=== PATIENT | male | born 1940 | race Caucasian/White ===

== ENCOUNTER 2022-04-15 08:56 | Outpatient (CLI) | payer MEDICARE, OTHER, SELFPAY ==
--- NOTE | 2022-04-15 11:15 | NEURO_ITS ---
Impression: # Complains of numbness. History of back surgery for spinal stenosis. # Normal nerve conduction study including F-waves, motor and sensory nerves. # Needle/EMG exam not requested. # Clinical correlation recommended. Nerve Conduction Studies Anti Sensory Summary Table Stim Site NR Peak (ms) P-T Amp (?V) Site1 Site2 Delta-P (ms) Dist (cm) Tawanda (m/s) Left Sup Fibular Anti Sensory (Ant Lat Mall) 14 cm 3.3 11.5 14 cm Ant Lat Mall 3.3 16.0 48 Left Sural Anti Sensory (Lat Mall) Calf 3.6 9.2 Calf Lat Mall 3.6 16.0 44 Motor Summary Table Stim Site NR Onset (ms) O-P Amp (mV) Site1 Site2 Delta-0 (ms) Dist (cm) Tawanda (m/s) Left Peroneal Motor (Vastus Med) Ankle 4.1 2.2 Popit Ankle 8.5 37.0 44 Popit 12.6 1.9 Left Tibial Motor (Abd Mora Brev) Ankle 4.8 2.0 Knee Ankle 9.5 41.0 43 Knee 14.3 1.4 F Wave Studies NR F-Lat (ms) L-R F-Lat (ms) Left Peroneal (Mrkrs) (EDB) 55.28 Left Tibial (Mrkrs) (Abd Hallucis) 56.06 MTDD
== END 2022-04-15 08:57 | disposition home or self-care (01) ==
LOC: ANHNEURO 08:58
PROVIDERS: PCP Internal Medicine; Visit Provider Internal Medicine
DX: M54.16 Radiculopathy, lumbar region (principal)
CPT/HCPCS: 95908

== ENCOUNTER 2022-06-25 09:07 | Outpatient (CLI) | payer MEDICARE, OTHER, SELFPAY ==
--- NOTE | 2022-06-25 11:00 | NEURO_ITS ---
Impression: # Complains of numbness of left hand. # Severe left Carpal Tunnel Syndrome. # Left ulnar neuropathy across the elbow. # Needle/EMG exam not requested. Motor Nerve Conduction Upper Extremities Median Nerve Conduction Velocity (m/sec) Terminal Latency (msec) Response Voltage(mV) Elbow-Wrist Wrist Elbow Wrist Right Left 60 6.4 1 1 Ulnar Nerve Conduction Velocity (m/sec) Terminal Latency (msec) Response Voltage(mV) Above Elbow Below Elbow Wrist Above Elbow Below Elbow Wrist Right Left 51 57 2.6 7 6 7 F-Wave Latency Median (ms) Ulnar (ms) Right Left 26.9 24.9 Sensory Nerve Conduction Upper Extremities Median Nerve Stimulation Terminal Latency (msec) Wrist/Digit Response Voltage (uV) Wrist Right Left 5.5/5.9 24/25 Ulnar Nerve Stimulation Terminal Latency (msec) Wrist/Digit Response Voltage (uV) Wrist Right Left 2.8 19 Radial Nerve Terminal Latency (msec) Response Voltage(mV) Right Left 2.3 11 MTDD
== END 2022-06-25 09:08 | disposition home or self-care (01) ==
LOC: ANHNEURO 09:09
PROVIDERS: PCP Internal Medicine; Visit Provider Internal Medicine
DX: G56.02 Carpal tunnel syndrome, left upper limb (principal); G56.22 Lesion of ulnar nerve, left upper limb; M79.641 Pain in right hand
CPT/HCPCS: 95909

== ENCOUNTER 2022-09-24 00:57 | Day surgery (SDC) | payer MEDICARE, OTHER, SELFPAY ==
--- NOTE | 2022-09-14 14:46 | PC.NURSE ---
Report to the Outpatient Waiting Room, entrance under the green pavilion located off [facility], at time __1100 on date __09/24/22 . Planned Procedure Time: __1300 . Time changes happen often and if your time is changed the preop area will call you the afternoon before. - You and your visitor will be asked to self-screen and do not enter if you have any COVID symptoms. - Only one visitor is requested with a max of two and NO children visitors are allowed at this time. - The patient visitor may be requested to leave or wait in car when not with patient due to distancing restrictions. - A mask is optional within the hospital at this time. Patients may have clear liquids (water, carbonated beverages, clear teas, apple juice) until 3 hours prior to surgery with a maximum of 20 ounces. - No food from midnight until time of surgery - Infants may have breast milk until 4 hours before surgery, formula 6 hours prior to surgery. - Children will be allowed to drink immediately following surgery. If applicable, please bring a bottle or sippy cup to assist with drinking. Juice, water, soda, and popsicles are readily available. For infants on formula, please bring formula the day of surgery. Pacifiers are allowed. Take the following medications with a SIP of water the morning of surgery: NONE DO NOT STOP ANY OF YOUR OTHER PRESCRIPTION MEDICATIONS PRIOR TO SURGERY ?EXCEPT THE FOLLOWING Medications to discontinue per physician ____ALL VITAMINS/SUPPLEMENTS 3 DAYS PRE OP. LAST DOSE 09/20/22 Please no make-up, nail vietnamese, hairspray, perfume, deodorant, or body powder the day of surgery. No jewelry (including any body piercings) or valuables the day of surgery, leave them at home. Please take a shower or bath the night before, or the morning of, surgery with an antibacterial soap. Wear comfortable, loose fitting clothing. Children are encouraged to wear pajamas. - Jewelry must be removed prior to entering the operating room. Rings and piercings that are not removed may be cut off. - The hospital will not accept responsibility for valuables. - Please leave all valuables, including medications, at home the day of surgery. If you are going home after surgery, a licensed racecar driver must drive you home. - NO public transportation without another adult if you receive anesthesia. - We recommend that an adult stay with you for 24 hours following discharge. - We also recommend that you do not drive, make important decision, drink alcoholic beverages, or take any drugs that were not prescribed by your health care provider for at least 24 hours after your discharge time. For Pediatric surgeries, we recommend two adults accompany the child home. Follow any additional instructions given to you from your surgeon. If you or anyone in your household have experienced Covid symptoms in the past week, please notify your surgeon or the nurse liaison at the phone number below for possible testing. Telephone instructions given to __PATIENT and asked if any additional questions and then verbalized understanding. Patient advised to call surgeon office or pre surgery nurse liaison [phone] if any additional questions.
[2022-09-14 14:53] VITALS: BMI 24.0
--- NOTE | 2022-09-24 07:17 | WPDHPUPDATE1 ---
History and Physical Update Update Date/Time: 09/24/22 07:17 History and Physical has been reviewed, including an updated exam of the patient. There are NO changes in the patient's condition. Risks, benefits, and alternatives have been discussed and questions answered. Patient agrees to proceed with procedure.
[2022-09-24] MEDS: LACTATED RINGERS 1,000 ML 30 ML IV CONT (11:40)
[2022-09-24 11:47] VITALS: BP 111/61; PULSE 73; RESP 16; TEMP 36.2; O2SAT 97
--- NOTE | 2022-09-24 12:36 | WPDANESEPPF ---
Anes - Initial Pre Proc Eval Procedure: Operation Date: 09/24/22 13:00 Proposed Procedures p Left Open Carpal Tunnel, Left Ulnar Neuroplasty at Elbow - Jerrod Betancur MD Date/Time: 09/24/22 12:36 Surgeon: Jerrod Betancur MD Pre Op Diagnosis: Left Carpal & Left Cubital Tunnel Synd Patient Data Age: 81 Gender: M Height: 1.63 m Weight: 66.4 kg Last Vital Signs Temp 97.2 F L 09/24/22 11:47 Pulse 73 09/24/22 11:47 Resp 16 09/24/22 11:47 BP 111/61 09/24/22 11:47 Pulse Ox 97 09/24/22 11:47 O2 Del Method Room Air 09/24/22 11:47 Allergies Allergy/AdvReac Type Severity Reaction Status Date / Time No Known Allergies Allergy Verified 09/24/22 11:26 Home Medications Medication Instructions Recorded Confirmed Type esomeprazole magnesium 40 mg 40 mg PO DAILY 06/04/22 09/14/22 History capsule,delayed release magnesium 500 mg tablet 15 mg PO DAILY 09/14/22 09/14/22 History multivitamin 1 tablet PO DAILY 09/14/22 09/14/22 History Patient hx anesthesia problems: none Family hx anesthesia problems: none Results Review: All pre-operative results and documents have been reviewed as part of the pre-operative evaluation. [facility] Social History Social History (Updated 06/04/22 @ 10:21 by Delmi Cardoso [facility]) Smoking status: Never smoker Alcohol intake: never Substance use: never Lack of Transportation: No Lack of Food: Never True Current Housing: I Have Housing Concerned About Future Housing: No Difficulty Paying Gas/Electric Bills: No Difficulty Paying for Meds: No Currently Unemployed: No Education: High School Diploma/GED Difficulty w/ Childcare or Family Care: No Living arrangements: with friend(s) Spiritual care concerns: No Anes - Eval Final PreProcedure Day of Procedure 09/24/22 12:36 Patient weight: normal Heart: regular rate and rhythm Lungs: clear to auscultation Airway: Mallampati scale class II Neurological: alert and oriented Last oral intake: >/= 8 hours ASA classification: III Emergent: no Anesthetic plan: proceed Anesthesia type and monitoring: general GIVS and standard monitoring Results Review: All pre-operative results and documents have been reviewed as part of the pre-operative evaluation. Informed Consent: The patient's anesthetic plan and its attendant risks and benefits were discussed with the patient/family/POA. Questions were solicited and answers provided to the satisfaction of the patient/family/POA.
[2022-09-24] MEDS: LIDO 1%/EPINEPHRINE 1:100,000 50 ML VIAL 25 ML INFILTRATE (13:38)
[2022-09-24] MEDS: BACITRACIN OINTMENT 15 GM TUBE 1 APPLIC TOPICAL (13:38)
[2022-09-24 13:56] VITALS: BP 92/43; PULSE 71; RESP 14; O2SAT 97
[2022-09-24 14:25] VITALS: BP 111/54; PULSE 62; RESP 16
[2022-09-24 14:53] VITALS: BP 111/54; PULSE 62; RESP 16
--- NOTE | 2022-09-24 17:25 | P.OP_ITS ---
Procedure Note - Detailed Date of Procedure 09/24/22 Pre-op Diagnosis Left Carpal & Left Cubital Tunnel Synd Post-op Diagnosis Same Procedure Performed Left carpal tunnel release and left ulnar neuroplasty at the elbow Surgeon Jerrod Betancur MD Anesthesia MAC Description of Procedure The left carpal tunnel in the left cubital tunnel were marked on the patient in the holding area with his consent. He was taken to the operating room where he was placed supine on the operating table. He was given IV sedation. The extremity was prepped and draped in usual fashion. The time-out was held and confirmed. The surgical sites were marked for incisions and locally infiltrated with 1% lidocaine with epinephrine. The extremity was exsanguinated with an Pillo wrap and the tourniquet inflated to 250 mmHg. The carpal tunnel surgery was done 1st with the incision as marked. Blunt dissection to the subcutaneous tissue revealed the palmar aponeurosis. This and the transverse retinaculum were incised with a 15. Blade opening the canal. Under 3 point retraction the ligament was divided distally and proximally to completely release it. There was no unusual anatomy noted. The skin was closed with interrupted 4-0 nylon suture. Attention was turned to the elbow which was supported on folded towels flexed a nd the arm externally rotated. The incision was made as marked and dissection was carried through the very elastic subcutaneous tissue. The nerve was easily identified posterior to the medial epicondyle. It was easily removed least proximally there were no constraints in that area particularly. Distally it was followed beneath Lazar's ligament and into the flexor muscle fascia. This nerve did not subluxate. Bleeding points were electrocoagulated. The skin was closed with interrupted 3-0 Monocryl at several sites and then the running intradermal skin closure with 3-0 Monocryl. The usual bandages were applied to each the tourniquet was released. The patient's transported to the recovery room stable condition. Estimated Blood Loss -2.0 Tourniquet Time 36 Drains No Packing No Pathology None sent Complications No immediate complications Condition Stable Disposition Same day
== END 2022-09-24 15:07 | disposition home or self-care (01) ==
PROVIDERS: PCP Internal Medicine; Visit Provider Plastic Surgery
PROC: (CPT 64721; principal; 2022-09-24 13:00)
DX: G56.02 Carpal tunnel syndrome, left upper limb (principal); G56.22 Lesion of ulnar nerve, left upper limb
CPT/HCPCS: 64721; 64718; A9270; J2704; J3010; J7120

== ENCOUNTER 2023-03-23 16:52 | Emergency (ER) | payer MEDICARE, OTHER, SELFPAY ==
--- NOTE | ~2023-03-23 | CT_ITS ---
EXAMINATION: CTA brain carotid DATE: 03/23/2023 20:25 INDICATION: dizzy TECHNIQUE: Computed tomographic angiography (CTA) of the head and neck was performed with 100 mL Omni paque-350 intravenous contrast. CTA of the neck was performed with intravenous contrast. Automated ex posure control and iterative reconstruction technique were employed. The dose-length product was 1130 .63 mGy-cm. Maximum intensity projection and volume rendered 3D-reconstructions were created by the t echnologist on a separate workstation. COMPARISON: CT brain, same date. FINDINGS: CTA HEAD: No large vessel occlusion, aneurysm, high flow vascular malformation, nidus or extravasation. Symmetr ic parenchymal enhancement. Patent cerebral veins. CTA NECK: Aortic arch and proximal great vessels: Bovine arch. Right common carotid, carotid bifurcation, and internal carotid artery: Minimal calcification at the bifurcation.There is 0% stenosis of the proximal right internal carotid artery relative to normal dis bouchra artery lumen diameter (NASCET criteria). Left common carotid, carotid bifurcation, and internal carotid artery: Mild calcification at the bifu rcation.There is 0% stenosis of the proximal left internal carotid artery relative to normal distal a rtery lumen diameter (NASCET criteria). Vertebral arteries: No significant plaque or stenosis. Vertebral arteries co-dominant. Other findings: Extensive anterior and posterior cervical spinal hardware fusion, without competition . IMPRESSION: No large vessel occlusion. No significant carotid or vertebral stenosis. Reviewed, dictated and finalized at location K.
--- NOTE | ~2023-03-23 | CT_ITS ---
EXAMINATION: CT brain wo con DATE: 03/23/2023 18:22 INDICATION: dizzy . TECHNIQUE: Computed tomography (CT) of the head was performed without intravenous contrast. The mA wa s adjusted according to patient size. Iterative reconstruction technique was employed. The dose-lengt h product was 605.33 mGy-cm. COMPARISON: None. FINDINGS: No acute intracranial hemorrhage or extra-axial fluid collection. No hydrocephalus, mass, or herniation. No acute ischemic infarct. Unremarkable dural venous sinus attenuation. No acute osseous abnormality. The aerated spaces are clear. Mild atrophy and chronic white matter change. Atherosclerotic intracranial calcification. Bilateral l ens replacements. IMPRESSION: No acute intracranial process. Reviewed, dictated and finalized at location K.
[2023-03-23 17:30] VITALS: BP 111/67; PULSE 76; RESP 18; TEMP 36.6; O2SAT 100
--- NOTE | 2023-03-23 18:06 | ECG_ITS ---
Measurements Intervals [place] Rate: 69 P: 69 WY: 139 QRS: 44 QRSD: 89 T: 35 QT: 399 QTc: 428 Interpretive Statements SINUS RHYTHM DELAYED PRECORDIAL R/S TRANSITION BASELINE WANDER- V3 NO PREVIOUS ECG AVAILABLE FOR COMPARISON Electronically Signed On 03-23-2023 20:15:03 CDT by Ronny Carey D.O.
[2023-03-23 19:02] LABS: Alanine Aminotransferase 22 U/L (6-50); Albumin Level 4.5 g/dL (3.5-5.1); Alkaline Phosphatase 59 U/L (38-126); Anion Gap 4 mmol/L (8-16); Aspartate Amino Transferase 38 U/L (17-59); Bilirubin,Total 0.8 mg/dL (0.2-1.3); Blood Urea Nitrogen 17 mg/dL (9-20); Calcium 9.3 mg/dL (8.4-10.2); Carbon Dioxide 32 mmol/L (22-30); Chloride 103 mmol/L (98-107); Estimated CRCL calculation 50 ml/min; Estimated Glomerular Filt Rate > 60; Glucose 106 mg/dL (65-110); Potassium 4.5 mmol/L (3.4-5.0); Sodium 139 mmol/L (137-145)
--- NOTE | 2023-03-23 19:04 | ED.GENADULT ---
HPI - General Adult General Chief complaint: Dizziness <Chanda Baker October, Last Filed: 03/23/23 19:12> Stated complaint: dizziness <Chanda Baker October, Last Filed: 03/23/23 19:12> Time Seen by Provider: 03/23/23 18:08 <Chanda Baker October, Last Filed: 03/23/23 19:12> History of Present Illness HPI narrative: Simeon Ruff is an 82 y/o male who presents with reports of waking up today at around 1000 and felt very dizzy he tried to walk down the [place] and felt like the room was spinning, when he looked in the mirror he saw his reflection moving back and forth and almost like there were two of him. He then had extreme nausea and vomited 3 times. The last time he vomited was at 1130 and it was yellow bile in nature. He reported having a slight headache with this episode. He still reports feeling dizzy but it has improved, he no longer feels nauseated and denies any abdominal pain. He states that he had a similar episode 2 days ago but it only lasted about 45 minutes and one other episode two weeks ago that did not last very long. <Chanda Baker October, Last Filed: 03/23/23 19:12> Related Data Home medications: Home Medications Medication Instructions Recorded Confirmed esomeprazole magnesium 40 mg 40 mg PO DAILY 06/04/22 09/14/22 capsule,delayed release magnesium 500 mg tablet 15 mg PO DAILY 09/14/22 09/14/22 multivitamin 1 tablet PO DAILY 09/14/22 09/14/22 <Chanda Baker October, Last Filed: 03/23/23 19:12> Allergies/adverse reactions: Allergies Allergy/AdvReac Type Severity Reaction Status Date / Time No Known Allergies Allergy Verified 03/23/23 16:53 <Chanda Baker October, Last Filed: 03/23/23 19:12> Review of Systems Review of Systems: CONSTITUTIONAL: Denies fever, chills, or sweats. EYES: Denies visual changes, redness, or discharge. ENT: Denies rhinorrhea, congestion, sore throat, or otalgia. CARDIOVASCULAR: Denies chest pain, palpitations, or edema. RESPIRATORY: Denies cough or dyspnea. GASTROINTESTINAL: Denies abdominal pain, nausea, vomiting, or diarrhea. GENITOURINARY: Denies dysuria or hematuria. SKIN: Denies rash or itching. MUSCULOSKELETAL: Denies back pain, joint pain, or myalgia. NEUROLOGIC: Reports dizziness that he woke up with at 1000 denies any weakness. PSYCHIATRIC: Denies anxiety or depression. <Chanda Baker October, - Last Filed: 03/23/23 19:12> [facility] Social History Social History: Social History Smoking status: Never smoker Alcohol intake: never Substance use: never Lack of Transportation: No Lack of Food: Never True Current Housing: I Have Housing Concerned About Future Housing: No Difficulty Paying Gas/Electric Bills: No Difficulty Paying for Meds: No Currently Unemployed: No Education: High School Diploma/GED Difficulty w/ Childcare or Family Care: No Living arrangements: with friend(s) Spiritual care concerns: No <Chanda Baker October, - Last Filed: 03/23/23 19:12> Exam Narrative: GENERAL: Well-appearing, well-nourished, and in no acute distress. HEAD: Normocephalic, atraumatic. EYES: PERRLA and EOMI. ENT: Nares clear, no rhinorrhea or epistaxis. Mucous membranes moist. Oropharynx without tonsillar hypertrophy exudate or other lesions. Bilateral TMs pearly meza nonbulging NECK: Supple. No adenopathy or masses. No carotid bruits or JVD CHEST: Clear to auscultation. No respiratory distress. No wheezes rales or rhonchi HEART: Regular rate and rhythm. No murmur heard. Normal peripheral pulses. ABDOMEN: Soft, nontender, nondistended, normal active bowel sounds. EXTREMITIES: Normal range of motion. No edema. SKIN: Warm, dry, no rash. NEURO: No focal deficits. Alert and oriented x3. PSYCH: Normal mood and affect. 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
[2023-03-23 19:05] LABS: Basophils Percent Auto 0.2 % (0.2-1.2); Eosinophils Absolute Auto 0.1 K/mm3 (0-0.3); Hematocrit 44.7 % (42.0-52.0); Hemoglobin 14.8 g/dL (14.0-18.0); Immature Granulocyte Absolute 0.03 K/mm3 (0.00-0.031); Immature Granulocyte Percent A 0.4 % (0-0.5); Lymphocytes Absolute Auto 1.15 K/mm3 (0.9-3.2); Lymphocytes Percent Auto 14.2 % (18.3-44.2); Mean Corpuscular HGB Conc 33.1 g/dl (32-36); Mean Corpuscular Volume 99.8 fl (80-100); Mean Platelet Volume 9.2 fl (7.4-10.4); Monocytes Absolute Auto 0.7 K/mm3 (0.1-0.6); Monocytes Percent Auto 8.1 % (2.6-8.5); Neutrophils Absolute Auto 6.2 K/mm3 (1.3-6.7); Neutrophils Percent Auto 76.1 % (45.5-73.1); Platelet Count Result 247 k/mm3 (150-375); Red Blood Count 4.48 M/mm3 (4.6-6.20); White Blood Count 8.1 K/mm3 (4.5-10.0)
[2023-03-23 19:26] LABS: Troponin I 0.013 ng/mL (0.000-0.034)
[2023-03-23 19:35] LABS: INR 1.1; Partial Thromboplastin Time 35.5 SECONDS (22.3-36.8); Prothrombin Time 14.5 Seconds (11.1-14.7)
[2023-03-23] MEDS: MECLIZINE HCL 25 MG TABLET PO (22:58)
[2023-03-23] MEDS: ONDANSETRON INJ 4 MG/2 ML VIAL IV PUSH (22:58)
[2023-03-23] MEDS: SODIUM CHLORIDE 0.9% IV 1,000 ML 999 ML IV CONT (22:59)
[2023-03-24 00:03] VITALS: BP 121/66; PULSE 76; RESP 16; O2SAT 97
== END 2023-03-24 00:04 | disposition home or self-care (01) ==
PROVIDERS: Nurse Practitioner Family; Emergency Provider Emergency Medicine; PCP Internal Medicine
DX: R42 Dizziness and giddiness (principal)
CPT/HCPCS: 36415; 70450; 70496; 70498; 80053; 84484; 85025; 85610; 85730; 93005; 96361; 96374; 99284; A9270; J2405; J7030; Q9967